=== PATIENT | male | born 1970 | race Caucasian/White ===

== ENCOUNTER 2020-06-15 15:49 | Emergency (ER) | payer OTHER ==
[2020-06-15 16:34] LABS: APPEARANCE,URINE Cloudy (CLEAR); BILIRUBIN,URINE Negative (NEGATIVE); COLOR,URINE Yellow (YELLOW); GLUCOSE, URINE (UA) Negative (NEGATIVE); KETONES,URINE Negative (NEGATIVE); LEUKOCYTE ESTERASE ,URINE Moderate (NEGATIVE); NITRATE,URINE Positive (NEGATIVE); OCCULT BLOOD,URINE Large (NEGATIVE); PROTEIN,URINE POS 2+ mg/dL (NEGATIVE)
[2020-06-15 16:52] LABS: RBC,URINE None Seen /HPF (0-1)
[2020-06-15 16:53] LABS: BACTERIA,URINE Many /HPF (None Seen); SQUAMOUS EPITHELIAL CELL,UR None Seen /HPF (0-2); WBC,URINE 26-50 /HPF (0-1)
[2020-06-15 17:57] LABS: BASOPHILS % (AUTO) 0.3 % (0.0-5.0); EOSINOPHILS % (AUTO) 1.8 % (0.0-8.0); HEMATOCRIT 43.3 % (42-54); LYMPHOCYTES % (AUTO) 15.6 % (21.0-51.0); MEAN CORPUSCULAR HEMOGLOBIN 23.8 pg (27.0-33.0); MEAN CORPUSCULAR HGB CONC 30.7 g/dL (32.0-36.0); MEAN CORPUSCULAR VOLUME 77.3 fL (79-99); MONOCYTES % (AUTO) 4.5 % (3.0-13.0); NEUTROPHILS % (AUTO) 77.4 % (40.0-77.0); PLATELET COUNT (AUTO) 227 K/uL (130-400); RED CELL DISTRIBUTION WIDTH 18.5 % (11.0-15.5); WHITE BLOOD COUNT (AUTO) 8.9 K/uL (4.8-10.8)
[2020-06-15 18:05] LABS: CREATININE 1.1 mg/dL (0.5-1.5); POTASSIUM 4.2 mmol/L (3.5-5.1)
[2020-06-15 18:09] LABS: ALBUMIN 3.2 g/dL (3.5-5.0); BILIRUBIN,TOTAL 0.3 mg/dL (0.2-1.0); TOTAL PROTEIN, SERUM 7.6 g/dL (6.0-8.3)
[2020-06-15] MEDS ORDERED: LIDOCAINE HCL-MPF 1% 2ML VIAL ONE (20:04)
[2020-06-15] MEDS ORDERED: CEFTRIAXONE SODIUM 1 GM ONE (20:04)
== END 2020-06-15 20:14 | disposition home or self-care (01) ==
LOC: EDH 15:49
DX: N39.0 Urinary tract infection, site not specified (principal); Z98.890 Other specified postprocedural states
CPT/HCPCS: 36415; 80053; 81001; 85025; 87077; 87088; 87186; 96372; 99283; J0696; J3490

== ENCOUNTER 2020-12-28 18:30 | Inpatient (IN) | payer OTHER ==
[~2020-12-28] VITALS: Ht 185.4 cm; Wt 275.3 kg
[2020-12-28] MEDS ORDERED: VANCOMYCIN KIT 1 GM/250 ML IV.KIT IV STA (20:44)
[2020-12-28] MEDS ORDERED: ZOSYN 3.375GM +NS 50ML IV STA (20:44)
[2020-12-28 21:23] LABS: BASOPHILS % (AUTO) 0.4 % (0.0-5.0); EOSINOPHILS % (AUTO) 2.2 % (0.0-8.0); HEMATOCRIT 39.9 % (42-54); MEAN CORPUSCULAR HEMOGLOBIN 23.8 pg (27.0-33.0); MEAN CORPUSCULAR HGB CONC 31.3 g/dL (32.0-36.0); MEAN CORPUSCULAR VOLUME 75.9 fL (79-99); MONOCYTES % (AUTO) 10.9 % (3.0-13.0); NEUTROPHILS % (AUTO) 67.3 % (40.0-77.0); PLATELET COUNT (AUTO) 175 K/uL (130-400); RED BLOOD CELL COUNT(AUTO) 5.26 MIL/uL (4.50-6.20); RED CELL DISTRIBUTION WIDTH 16.9 % (11.0-15.5); WHITE BLOOD COUNT (AUTO) 4.6 K/uL (4.8-10.8)
[2020-12-28 21:38] LABS: POTASSIUM 3.8 mmol/L (3.5-5.1)
[2020-12-28 21:43] LABS: ALBUMIN 3.3 g/dL (3.5-5.0); BILIRUBIN,TOTAL 0.4 mg/dL (0.2-1.0); TOTAL PROTEIN, SERUM 7.7 g/dL (6.0-8.3)
[2020-12-28] MEDS ORDERED: ONDANSETRON 4MG INJ IV PRN (23:00)
[2020-12-28] MEDS ORDERED: VANCOMYCIN PROTOCOL PER PHARMACY IV PRN (23:00)
[2020-12-28] MEDS ORDERED: LACTULOSE 20 GM/30 ML UDCUP PO PRN (23:00)
[2020-12-28] MEDS ORDERED: ACETAMINOPHEN 325 MG TAB PO PRN ×2 (23:00)
[2020-12-28] MEDS ORDERED: MAG/ALUM/SIMETH 30 ML UDCUP PO PRN (23:00)
[2020-12-28 23:07] LABS: APPEARANCE,URINE Clear (CLEAR); BILIRUBIN,URINE Negative (NEGATIVE); COLOR,URINE Yellow (YELLOW); GLUCOSE, URINE (UA) Negative (NEGATIVE); KETONES,URINE Negative (NEGATIVE); LEUKOCYTE ESTERASE ,URINE Negative (NEGATIVE); NITRATE,URINE Negative (NEGATIVE); OCCULT BLOOD,URINE Negative (NEGATIVE); PROTEIN,URINE Negative (NEGATIVE)
[2020-12-29] MEDS ORDERED: KETOROLAC 15MG/ML VIAL (15MG/ML) IM PRN (00:30)
[2020-12-29] MEDS ORDERED: MORPHINE 2 MG SYG IVP PRN (00:30)
[2020-12-29] MEDS ORDERED: 0.9%NACL 50ML 50 ML IV ONE (05:41)
[2020-12-29] MEDS: ZOSYN 3.375GM+NS 50ML 50 ML IV SCH ×4 (05:44→20:32)
[2020-12-29 06:19] LABS: HEMATOCRIT 39.5 % (42-54); MEAN CORPUSCULAR HGB CONC 31.6 g/dL (32.0-36.0); RED BLOOD CELL COUNT(AUTO) 5.2 MIL/uL (4.50-6.20); WHITE BLOOD COUNT (AUTO) 5.1 K/uL (4.8-10.8)
[2020-12-29 06:37] LABS: HEMOGLOBIN A1C 5.9 % (4.0-6.0)
[2020-12-29 06:50] LABS: CREATININE 0.9 mg/dL (0.5-1.5); POTASSIUM 3.9 mmol/L (3.5-5.1)
[2020-12-29] MEDS ORDERED: ATOR10 PO (09:27)
[2020-12-29] MEDS ORDERED: LISI5TAB21 PO (09:27)
[2020-12-29] MEDS: FAMOTIDINE 20MG TAB PO SCH ×2 (09:30→21:29)
[2020-12-29] MEDS: ENOXAPARIN SODIUM 40 MG/0.4 ML SYRINGE SQ SCH (09:30)
[2020-12-29 11:00] VITALS: BP 152/74
[2020-12-29] MEDS ORDERED: VANCOMYCIN 2GM/500ML NS IV SCH ×2 (12:00)
[2020-12-29] MEDS ORDERED: COMPOUND IV REFRIGERATED 1 EACH IVSOLN MISC PRN (12:00)
[2020-12-29] MEDS: LISINOPRIL 5 MG TABLET PO SCH (12:02)
[2020-12-29 15:25] VITALS: BP 150/84
[2020-12-29 19:25] VITALS: BP 134/72
[2020-12-29] MEDS: ATORVASTATIN 10 MG TABLET PO SCH (21:29)
[2020-12-29] MEDS: VANCOMYCIN 2GM/500ML NS IV SCH ×2 (21:35)
[2020-12-29 23:14] VITALS: BP 145/67
[2020-12-30] MEDS: ZOSYN 3.375GM+NS 50ML 50 ML IV SCH ×4 (02:00→21:41)
[2020-12-30 03:59] VITALS: BP 126/67
[2020-12-30 04:34] LABS: HEMATOCRIT 41.8 % (42-54); MEAN CORPUSCULAR HEMOGLOBIN 23.4 pg (27.0-33.0); MEAN CORPUSCULAR HGB CONC 30.6 g/dL (32.0-36.0); MEAN CORPUSCULAR VOLUME 76.4 fL (79-99); RED BLOOD CELL COUNT(AUTO) 5.47 MIL/uL (4.50-6.20); RED CELL DISTRIBUTION WIDTH 17.2 % (11.0-15.5); WHITE BLOOD COUNT (AUTO) 4.1 K/uL (4.8-10.8)
[2020-12-30 04:46] LABS: CREATININE 0.9 mg/dL (0.5-1.5); POTASSIUM 4.2 mmol/L (3.5-5.1)
[2020-12-30] MEDS: VANCOMYCIN 2GM/500ML NS IV SCH ×6 (05:44→23:32)
[2020-12-30 07:35] VITALS: BP 120/58
[2020-12-30] MEDS: FAMOTIDINE 20MG TAB PO SCH ×2 (09:35→21:40)
[2020-12-30] MEDS: ENOXAPARIN SODIUM 40 MG/0.4 ML SYRINGE SQ SCH (09:35)
[2020-12-30] MEDS: LISINOPRIL 5 MG TABLET PO SCH (09:36)
[2020-12-30 11:30] VITALS: BP 139/71
[2020-12-30 15:40] VITALS: BP 137/78
[2020-12-30 20:00] VITALS: BP 139/67
[2020-12-30] MEDS: ATORVASTATIN 10 MG TABLET PO SCH (21:40)
[2020-12-31] VITALS: BP 142/71
[2020-12-31 04:00] VITALS: BP 151/84
[2020-12-31] MEDS: ZOSYN 3.375GM+NS 50ML 50 ML IV SCH ×3 (04:32→20:44)
[2020-12-31 04:49] LABS: HEMATOCRIT 41.6 % (42-54); MEAN CORPUSCULAR HEMOGLOBIN 23.3 pg (27.0-33.0); MEAN CORPUSCULAR HGB CONC 29.8 g/dL (32.0-36.0); MEAN CORPUSCULAR VOLUME 78.2 fL (79-99); RED BLOOD CELL COUNT(AUTO) 5.32 MIL/uL (4.50-6.20); RED CELL DISTRIBUTION WIDTH 16.8 % (11.0-15.5); WHITE BLOOD COUNT (AUTO) 4.6 K/uL (4.8-10.8)
[2020-12-31 05:04] LABS: CREATININE 0.9 mg/dL (0.5-1.5); POTASSIUM 4.3 mmol/L (3.5-5.1)
[2020-12-31] MEDS: VANCOMYCIN 2GM/500ML NS IV SCH ×4 (05:39→13:39)
[2020-12-31 07:30] VITALS: BP 131/72
[2020-12-31] MEDS: ENOXAPARIN SODIUM 40 MG/0.4 ML SYRINGE SQ SCH (09:07)
[2020-12-31] MEDS: LISINOPRIL 5 MG TABLET PO SCH (09:07)
[2020-12-31] MEDS: FAMOTIDINE 20MG TAB PO SCH ×2 (09:07→20:44)
[2020-12-31 11:25] VITALS: BP 170/88
[2020-12-31 15:25] VITALS: BP 175/89
[2020-12-31 20:00] VITALS: BP 140/87
[2020-12-31] MEDS: ATORVASTATIN 10 MG TABLET PO SCH (20:44)
[2020-12-31] MEDS: NYSTATIN 15 GM POWDER TP SCH (20:44)
[2020-12-31] MEDS: VANCOMYCIN 1G 1.75 GM in 0.9% NACL 250ML 250 ML IV SCH (22:19)
[2021-01-01 03:52] VITALS: BP 139/64
[2021-01-01] MEDS: ZOSYN 3.375GM+NS 50ML 50 ML IV SCH (04:46)
[2021-01-01 05:31] LABS: HEMATOCRIT 39.2 % (42-54); MEAN CORPUSCULAR HEMOGLOBIN 23.7 pg (27.0-33.0); MEAN CORPUSCULAR HGB CONC 30.6 g/dL (32.0-36.0); MEAN CORPUSCULAR VOLUME 77.3 fL (79-99); RED BLOOD CELL COUNT(AUTO) 5.07 MIL/uL (4.50-6.20); RED CELL DISTRIBUTION WIDTH 16.7 % (11.0-15.5); WHITE BLOOD COUNT (AUTO) 5.2 K/uL (4.8-10.8)
[2021-01-01 05:45] LABS: CREATININE 0.9 mg/dL (0.5-1.5); POTASSIUM 4.3 mmol/L (3.5-5.1)
[2021-01-01] MEDS: VANCOMYCIN 1G 1.75 GM in 0.9% NACL 250ML 250 ML IV SCH (05:47)
[2021-01-01 08:00] VITALS: BP 142/85
[2021-01-01] MEDS: ENOXAPARIN SODIUM 40 MG/0.4 ML SYRINGE SQ SCH (09:05)
[2021-01-01] MEDS: FAMOTIDINE 20MG TAB PO SCH (09:05)
[2021-01-01] MEDS: LISINOPRIL 5 MG TABLET PO SCH (09:05)
[2021-01-01 11:54] VITALS: BP 145/75
[2021-01-01] MEDS: NYSTATIN 15 GM POWDER TP SCH (12:51)
[2021-01-01] MEDS ORDERED: CEPH500B PO (14:18)
== END 2021-01-01 16:00 | disposition home or self-care (01) | DRG 603 ==
LOC: EDH 18:30 → EDHIP 23:06 → 3DH 12-29 10:43
PROVIDERS: ADMIT Hospitalist; ATTEND Hospitalist
DX: L03.116 Cellulitis of left lower limb (principal); Z68.45 Body mass index [BMI] 70 or greater, adult; J44.9 Chronic obstructive pulmonary disease, unspecified; G47.33 Obstructive sleep apnea (adult) (pediatric); I10 Essential (primary) hypertension; E66.01 Morbid (severe) obesity due to excess calories; R53.81 Other malaise; E78.00 Pure hypercholesterolemia, unspecified; E11.9 Type 2 diabetes mellitus without complications; Z20.822 Contact with and (suspected) exposure to COVID-19; Z87.891 Personal history of nicotine dependence; Z83.3 Family history of diabetes mellitus; Z80.9 Family history of malignant neoplasm, unspecified
CPT/HCPCS: 36415; 80048; 80053; 80202; 81003; 82948; 83036; 83605; 85025; 85027; 87040; 87088; 87635; 87804; 93971; C9803; G0378; J1650; J1885; J2543; J3370; J7040; J7050

== ENCOUNTER 2023-05-08 09:09 | Emergency (ER) | payer MEDICARE, OTHER ==
[~2023-05-08] VITALS: Ht 182.9 cm; Wt 235.9 kg
[~2023-05-08 09:09] MED LIST: ATOR10 PO; CEPH500B PO; LISI5TAB21 PO
[2023-05-08 10:17] LABS: BASOPHILS # (AUTO) 0.02 K/uL (0.00-0.20); BASOPHILS % (AUTO) 0.2 % (0.0-5.0); EOSINOPHILS # (AUTO) 0.02 K/uL (0.00-0.70); EOSINOPHILS % (AUTO) 0.2 % (0.0-8.0); HEMATOCRIT 45.1 % (42-54); IMMATURE GRANULOCYTE ABSOLUTE 0.04 K/uL (0-1); LYMPHOCYTES # (AUTO) 0.5 K/uL (1.0-4.8); LYMPHOCYTES % (AUTO) 4.7 % (21.0-51.0); MEAN CORPUSCULAR HEMOGLOBIN 25.1 pg (27.0-33.0); MEAN CORPUSCULAR HGB CONC 31.7 g/dL (32.0-36.0); MEAN CORPUSCULAR VOLUME 79.1 fL (79-99); MONOCYTES # (AUTO) 0.5 K/uL (0.1-1.0); MONOCYTES % (AUTO) 5.3 % (3.0-13.0); NEUTROPHILS # (AUTO) 8.7 K/uL (1.8-7.7); NEUTROPHILS % (AUTO) 89.2 % (40.0-77.0); PLATELET COUNT (AUTO) 186 K/uL (130-400); RED CELL DISTRIBUTION WIDTH 15.7 % (11.0-15.5); WHITE BLOOD COUNT (AUTO) 9.8 K/uL (4.8-10.8)
[2023-05-08 10:26] LABS: CREATININE 0.8 mg/dL (0.5-1.3); POTASSIUM 3.9 mmol/L (3.5-5.1)
[2023-05-08 10:31] LABS: ALBUMIN 3.6 g/dL (3.5-5.0); BILIRUBIN,TOTAL 0.5 mg/dL (0.2-1.0); TOTAL PROTEIN, SERUM 7.6 g/dL (6.0-8.3)
[2023-05-08] MEDS: ONDANSETRON 4MG INJ IVP ONE (11:51)
[2023-05-08] MEDS: CLINDAMYCIN IVPB 600MG/50ML 50 ML IV ONE (11:51)
[2023-05-08] MEDS: MORPHINE 4 MG SYG IVP ONE (11:51)
[2023-05-08] MEDS ORDERED: CLIN-141 PO (12:27)
[2023-05-08] MEDS ORDERED: KETO10 PO (12:27)
[2023-05-08] MEDS: KETOROLAC 30MG VIAL (30MG/ML) IM ONE (13:00)
[2023-05-08 13:13] VITALS: BP 122/68; PULSE 78; RESP 18; O2SAT 98
== END 2023-05-08 13:19 | disposition home or self-care (01) ==
LOC: EDH 09:09
DX: A46 Erysipelas (principal); E66.01 Morbid (severe) obesity due to excess calories; Z68.45 Body mass index [BMI] 70 or greater, adult
CPT/HCPCS: 99285; 96365; 93971; 96375; 80053; 85025; 87040 ×2; 83605; 36415; 96372; J2405; J2270; J1885; J3490

== ENCOUNTER 2023-12-22 16:02 | Emergency (ER) | payer MEDICARE ==
[~2023-12-22] VITALS: Ht 182.9 cm; Wt 182.3 kg
[~2023-12-22 16:02] MED LIST changes: +CLIN-141 PO; +KETO10 PO
--- NOTE | 2023-12-22 16:09 | ERN ---
ED Note History of Present Illness Stated Complaint: SWELLING OF RIGHT LEG Chief Complaint: Cellulitis Time Seen by MD: 16:04 Dictation: PATIENT IS A 53-YEAR-OLD MALE COMING IN WITH BURNING SENSATION AND FEELING LIKE I AM GOING TO HAVE CELLULITIS TO MY RIGHT CALF ONSET 2-3 HOURS PRIOR TO ARRIVAL. HE STATES IT HAS BEEN RED SINCE THIS MORNING AND FEELS LIKE IT IS BURNING DENIES FEVER CHILLS NAUSEA VOMITING. NO CALF PAIN NO SWELLING. DISTAL NEUROVASCULAR CMS INTACT. Allergies: Coded Allergies: No Known Drug Allergies (Unverified Allergy, Unknown, 12/28/20) Home Meds Active Scripts Ketorolac Tromethamine (Toradol) 10 Mg Tab, 10 MG PO Q6HPRN for PAIN, #15 TAB Prov:JOANNE SUAREZ JOB TRAINING SPECIALIST 05/08/23 Clindamycin HCl (Clindamycin HCl) 300 Mg Capsule, 300 MG PO ACLUNCH for 7 Days, #28 CAP Prov:JOANNE SUAREZ JOB TRAINING SPECIALIST 05/08/23 Cephalexin Monohydrate (Keflex) 500 Mg Cap, 500 MG PO Q8H, #21 CAP 0 Refills Prov:PAUL QUIÑONES AGPCNP 01/01/21 Reported Medications Lisinopril (Lisinopril) 5 Mg Tablet, 5 MG PO DAILY, TAB 12/29/20 Atorvastatin Calcium (LIPITOR) 10 Mg Tab, 10 MG PO HS, TAB 12/29/20 Past Medical History Past Medical History: No Pertinent History Additional Past Medical Hx: OBESE, SLEEP APNEA Surgical History: Other Surgical History Other: GASTRIC BYPASS PSYCH History: no pertinent psych hx RN Note Reviewed/Agreed w/PFSH: Yes Review of System Dictation CONSTITUTIONAL: NEGATIVE EXCEPT FOR HPI HEAD/FACE: NEGATIVE EXCEPT FOR HPI EENT: NEGATIVE EXCEPT FOR HPI RESPIRATORY: NEGATIVE EXCEPT FOR HPI GASTROINTESTINAL/ABDOMINAL: NEGATIVE EXCEPT FOR HPI GENITOURINARY: NEGATIVE EXCEPT FOR HPI MUSCULOSKELETAL: NEGATIVE EXCEPT FOR HPI INTEGUMENTARY: NEGATIVE EXCEPT FOR HPI ERYTHEMA OR TENDERNESS TO POSTERIOR RIGHT CALF NEUROLOGICAL/PSYCH: NEGATIVE EXCEPT FOR HPI HEMATOLOGIC/LYMPHATIC: NEGATIVE EXCEPT FOR HPI ALL SYSTEMS NEGATIVE, EXCEPT NOTED ABOVE. 13 POINT REVIEW OF SYSTEMS ASSESSED AND ALL NEGATIVE EXCEPT FOR ABOVE. Initial Vital Sign VS Vital Signs Date Time Temp Pulse Resp B/P (MAP) Pulse Ox O2 Delivery O2 Flow Rate FiO2 12/22/23 16:04 98.6 91 20 151/87 98 Room Air 0 12/22/23 16:04 21 Physical Exam Dictation VITAL SIGNS REVIEWED GENERAL APPEARANCE: ALERT, ORIENTED X 3, NO ACUTE DISTRESS, WELL DEVELOPED, NOURISHED. MORBID OBESITY HEAD AND FACE: NON-TRAUMATIC. EYES: PERRL, PINK CONJUNCTIVAS, EYELID NO TRAUMA, ANTERIOR CHAMBER WITH ARCUS SENILIS. EARS: PINNAS INTACT AND NO SIGNS OF TRAUMA OR ERYTHEMA EAR CANALS CLEAR AND NO DISCHARGE TM NO ERYTHEMA NOSE: NO DISCHARGE, NO BLEEDING. OROPHARYNX: MOUTH NORMAL, TONGUE PINK, PHARYNX CLEAR,NO ERYTHEMA, TONSILS NO EXUDATES, NO ABSCESSES NOTED, MUCOUS MEMBRANE MOIST NECK: SUPPLE, NON-TENDER, NO THYROMEGALY, NO MASSES, NO JVD, NO BRUITS BREAST:DEFERRED CHEST:NO TENDERNESS, NO CREPITUS, NO PARADOXICAL MOVEMENT, NO RETRACTIONS LUNGS:CLEAR, WELL-VENTILATED, SYMMETRIC, NO RALES, NO WHEEZING, NO RHONCHI, NO STRIDOR, GOOD BREATH SOUNDS BILATERALLY HEART: REGULAR RATE, REGULAR RHYTHM, NO MURMUR, NO GALLOPS VASCULAR: NO PERIPHERAL EDEMA, ABDOMEN: SOFT, POSITIVE BOWEL SOUNDS, NONDISTENDED, NO GUARDING, NONTENDER, NO REBOUND, NO MASSES NO HEPATOMEGALY, NO SPLENOMEGALY, NO ABDUL'S SIGN, NO HERNIAS. RECTAL: DEFERRED GENITAL: DEFERRED NEUROLOGICAL: NORMAL SPEECH, MOTOR FUNCTION INTACT, SENSORY FUNCTION INTACT MUSCULOSKELETAL: NECK NONTENDER, FULL RANGE OF MOTION, BACK NONTENDER, FULL RANGE OF MOTION, EXTREMITIES: POSTERIOR RIGHT CALF WITH ERYTHEMA WITHOUT SWELLING TENDERNESS. DISTAL NEUROVASCULAR CMS INTACT. SKIN IS INTACT. SKIN: COLOR PINK, DRY, NO TURGOR, NO RASH, NO LACERATIONS, NO ABRASIONS, NO CONTUSIONS. LYMPHATIC: DEFERRED Results (Laboratory/Radiology) Laboratory/Radiology Laboratory Tests Test 12/22/23 16:42 White Blood Count 9.7 K/uL (4.8-10.8) Red Blood Count 5.39 MIL/uL (4.50-6.20) Hemoglobin 14.4 g/dL (14.0-18.0) Hematocrit 43.5 % (42-54) Mean Corpuscular Volume 80.7 fL (79-99) Mean Corpuscular Hemoglobin 26.7 pg (27.0-33.0) L Mean Corpuscular Hemoglobin Concent 33.1 g/dL (32.0-36.0) Red Cell Distribution Width 15.3 % (11.0-15.5) Platelet Count 187 K/uL (130-400) Mean Platelet Volume 9.4 fL (7.5-10.5) Immature Granulocyte % (Auto) 0.4 % (0-1) Neutrophils (%) (Auto) 88.9 % (40.0-77.0) H Lymphocytes (%) (Auto) 5.6 % (21.0-51.0) L Monocytes (%) (Auto) 4.1 % (3.0-13.0) Eosinophils (%) (Auto) 0.9 % (0.0-8.0) Basophils (%) (Auto) 0.1 % (0.0-5.0) Neutrophils # (Auto) 8.6 K/uL (1.8-7.7) H Lymphocytes # (Auto) 0.5 K/uL (1.0-4.8) L Monocytes # (Auto) 0.4 K/uL (0.1-1.0) Eosinophils # (Auto) 0.09 K/uL (0.00-0.70) Basophils # (Auto) 0.01 K/uL (0.00-0.20) Absolute Immature Granulocyte (auto 0.04 K/uL (0-1) Nucleated Red Blood Cells 0.0 % (0.0-0.19) White Cell Morphology Comment See comments Sodium Level 134 mmol/L (136-145) L Potassium Level 3.7 mmol/L (3.5-5.1) Chloride Level 98 mmol/L (101-111) L Carbon Dioxide Level 28 mmol/L (21-32) Blood Urea Nitrogen 15 mg/dL (7-18) Creatinine 0.8 mg/dL (0.5-1.3) Glomerular Filtration Rate Calc 106 mL/min (>90) Random Glucose 97 mg/dL (70-105) Lactic Acid Level 1.9 mmol/L (0.8-2.5) Total Calcium 8.7 mg/dL (8.5-10.1) Labs Reviewed?: Yes ED Course ED Course Orders Procedure Category Date Status Time Blood Cult KAVON 12/22/23 In Process 16:05 Lactic Acid LAB 12/22/23 Complete 16:05 Cbc With Differential LAB 12/22/23 Complete 16:05 Basic Metabolic Panel LAB 12/22/23 Complete 16:05 Clindamycin Ivpb PHA 12/22/23 Complete 600mg/50ml (Cleocin 17:30 Hydrocodone/Apap PHA 12/22/23 Complete 5/325 (Stacy 5/325mg) 18:00 Clindamycin Ivpb PHA 12/22/23 Complete 600mg/50ml (Cleocin 17:32 Current Medications Medications (Trade) Dose Ordered Sig/Cheryl Route PRN Reason Start Time Stop Time Status Last Admin Dose Admin Acetaminophen/ Hydrocodone Bitart (NORco 5/325MG) 1 tab ONCE ONCE PO 12/22/23 18:00 12/22/23 18:01 DC 12/22/23 17:42 Clindamycin HCl/ Dextrose 50 ml @ 100 mls/hr ONCE STAT IV 12/22/23 17:32 12/22/23 18:01 DC Clindamycin HCl/ Dextrose 50 ml @ 100 mls/hr Q8H IV 12/22/23 17:30 12/22/23 17:34 DC 12/22/23 17:06 Vital Signs Date Time Temp Pulse Resp B/P (MAP) Pulse Ox O2 Delivery O2 Flow Rate FiO2 12/22/23 16:04 98.6 91 20 151/87 98 Room Air* 0 21 12/22/23 16:04 98.6 91 20 151/87 98 Room Air 0 Medical Decision Making MDM MDM: DIFFERENTIAL DIAGNOSIS: SEPSIS/CELLULITIS/ERYSIPELAS/LEG PAIN RATIONALE: TESTS CONSIDERED AND ORDERED SECONDARY TO SHARED DECISION MAKING INCLUDE: LABS PREVIOUS OUTSIDE RECORDS REVIEWED: OLD ER VISITS. REVIEWED RISK OF COMPLICATION AND/OR MORBIDITY OR MORTALITY OF PATIENT MANAGEMENT: NONE MEDICATIONS-PER MEDICATION RECONCILIATION SEE NURSE'S NOTES NEED FOR HOSPITALIZATION: PATIENT DOES NOT MEET CRITERIA FOR HOSPITALIZATION. NEED FOR EMERGENCY MAJOR/MINOR SURGERY: NO THERE ARE NO SOCIAL CONCERNS WITH THIS PATIENT. PRESCRIPTION DRUG MANAGEMENT CLINDAMYCIN/TYLENOL THREE PRESCRIPTIONS WILL INCLUDE SYMPTOMATIC CARE PATIENT'S PRIOR EXTERNAL MEDICAL RECORDS FROM OTHER ER VISITS WERE REVIEWED BY ME INDICATED. PRIOR TESTING AND RESULTS FROM PREVIOUS VISITS WERE REVIEWED. PRIOR TESTS WERE TAKEN INTO ACCOUNT WITH MEDICAL DECISION MAKING AND RESOURCE UTILIZATION, INDEPENDENT HISTORIAN/HISTORIANS WERE USED TO OBTAIN COMPLETE MEDICAL HISTORY. I INDEPENDENTLY INTERPRETED THE TEST THAT WERE PERFORMED, RESULTS WERE REVIEWED BY ME AND CONSIDERED FINDINGS ON RADIOLOGY IF ORDERED. MEDICAL MANAGEMENT AND EXAMINATION INTERPRETATION DISCUSSIONS WERE HAD BY ME WITH OTHER QUALIFIED HEALTHCARE PROFESSIONALS INDICATED FOR THE PATIENT'S CARE. DX & DISP Disposition: Discharge Departure Impression: Primary Impression: Erysipelas of right lower extremity Condition: Stable Scripts Acetaminophen with Codeine (Acetaminophen-Cod #3 Tablet) 300 Mg-30 Mg Tablet 1 TAB PO Q4H PRN for MODERATE TO SEVERE, #12 TAB 0 Refills Prov: JOANNE SUAREZ NP 12/22/23 Clindamycin HCl (Clindamycin HCl) 300 Mg Capsule 1 CAP PO QID for 10 Days, #40 CAP 0 Refills Prov: JOANNE SUAREZ NP 12/22/23 Additional Instructions: Follow-up with primary care provider in 1 to 2 days. Take medications as directed here in the emergency room. Okay to continue home medications unless otherwise discussed during your visit in the emergency room today. Return to your nearest emergency room if symptoms worsen or if there is no improvement. Call 911 if you need immediate assistance. Take Tylenol or Motrin [id number] as needed and if no contraindications are present. Increase oral hydration. A wound culture or urine culture was ordered here in the emergency room department please follow-up with primary care provider and advise them to get repeat ports from our facility. If you had any Mak wrap/splints that were applied here, please do not remove them until you see your primary care or specialty. Take clindamycin as directed until gone. Keep your right leg elevated as much as possible. Follow up with your primary care doctor on Sunday Referrals: CELIO VICTOR (PCP) Time of Disposition: 18:30 I have reviewed the case, and I agree with, Diagnosis and Plan JOANNE SUAREZ NP Dec 22, 2023 16:09
[2023-12-22 16:50] LABS: BASOPHILS # (AUTO) 0.01 K/uL (0.00-0.20); BASOPHILS % (AUTO) 0.1 % (0.0-5.0); EOSINOPHILS # (AUTO) 0.09 K/uL (0.00-0.70); EOSINOPHILS % (AUTO) 0.9 % (0.0-8.0); HEMATOCRIT 43.5 % (42-54); IMMATURE GRANULOCYTE ABSOLUTE 0.04 K/uL (0-1); LYMPHOCYTES # (AUTO) 0.5 K/uL (1.0-4.8); LYMPHOCYTES % (AUTO) 5.6 % (21.0-51.0); MEAN CORPUSCULAR HEMOGLOBIN 26.7 pg (27.0-33.0); MEAN CORPUSCULAR HGB CONC 33.1 g/dL (32.0-36.0); MEAN CORPUSCULAR VOLUME 80.7 fL (79-99); MONOCYTES # (AUTO) 0.4 K/uL (0.1-1.0); MONOCYTES % (AUTO) 4.1 % (3.0-13.0); NEUTROPHILS # (AUTO) 8.6 K/uL (1.8-7.7); NEUTROPHILS % (AUTO) 88.9 % (40.0-77.0); PLATELET COUNT (AUTO) 187 K/uL (130-400); RED BLOOD CELL COUNT(AUTO) 5.39 MIL/uL (4.50-6.20); RED CELL DISTRIBUTION WIDTH 15.3 % (11.0-15.5); WHITE BLOOD COUNT (AUTO) 9.7 K/uL (4.8-10.8)
[2023-12-22 17:03] LABS: CREATININE 0.8 mg/dL (0.5-1.3); POTASSIUM 3.7 mmol/L (3.5-5.1)
[2023-12-22] MEDS: CLINDAMYCIN IVPB 600MG/50ML 50 ML IV SCH (17:06)
[2023-12-22] MEDS: CLINDAMYCIN IVPB 600MG/50ML 50 ML IV STA (17:40)
[2023-12-22] MEDS: HYDROcodone/APAP 5/325 1 TAB TABLET PO ONE (17:42)
[2023-12-22] MEDS ORDERED: ACET-2079 PO (18:31)
[2023-12-22] MEDS ORDERED: CLIN-141 PO (18:31)
[2023-12-22] MEDS: ketOROlac 30MG VIAL (30MG/ML) IVP ONE (19:05)
[2023-12-22 19:07] VITALS: BP 124/88; PULSE 68; RESP 20; TEMP 98.6; O2SAT 100
== END 2023-12-22 19:09 | disposition home or self-care (01) ==
LOC: EDH 16:02
DX: A46 Erysipelas (principal); G47.30 Sleep apnea, unspecified; Z79.899 Other long term (current) drug therapy; Z98.84 Bariatric surgery status; Z98.890 Other specified postprocedural states
CPT/HCPCS: 99284; 96365; 96375; 80048; 85025; 87040 ×2; 83605; 36415; J1885; J3490

== ENCOUNTER 2023-12-28 09:08 | Emergency (ER) | payer MEDICARE ==
[~2023-12-28] VITALS: Ht 182.9 cm; Wt 186.2 kg
[~2023-12-28 09:08] MED LIST changes: +ACET-2079 PO
--- NOTE | 2023-12-28 09:40 | ERN ---
General Chief Complaint: Lower Extremity Pain/Injury Stated Complaint: RLE SWELLING Time Seen by MD: 09:11 Source: patient History of Present Illness Initial Comments PATIENT IS A 53-YEAR-OLD MALE COMING IN TO BE EVALUATED FOR RIGHT LOWER EXTREMITY SWELLING AND TENDERNESS. PATIENT STATES THAT HE HAS BEEN TREATED FOR CELLULITIS IN HIS CURRENTLY TAKING ANTIBIOTICS. HE WAS EVALUATED BY HIS PCP AND WAS TOLD NEEDED AN [facility]LCERS HOME TO RULE OUT A CLOT. PATIENT HAS BEEN TRAVELING AND ALSO HAD A RECENT BARIATRIC SURGERY. Allergies: Coded Allergies: No Known Drug Allergies (Unverified Allergy, Unknown, 12/28/20) Home Meds Active Scripts Acetaminophen with Codeine (Acetaminophen-Cod #3 Tablet) 300 Mg-30 Mg Tablet, 1 TAB PO Q4H PRN for MODERATE TO SEVERE, #12 TAB 0 Refills Prov:JOANNE SUAREZ NP 12/22/23 Clindamycin HCl (Clindamycin HCl) 300 Mg Capsule, 1 CAP PO QID for 10 Days, #40 CAP 0 Refills Prov:JOANNE SUAREZ NP 12/22/23 Ketorolac Tromethamine (Toradol) 10 Mg Tab, 10 MG PO Q6HPRN for PAIN, #15 TAB Prov:JOANNE SUAREZ NP 05/08/23 Clindamycin HCl (Clindamycin HCl) 300 Mg Capsule, 300 MG PO ACLUNCH for 7 Days, #28 CAP Prov:JOANNE SUAREZ NP 05/08/23 Cephalexin Monohydrate (Keflex) 500 Mg Cap, 500 MG PO Q8H, #21 CAP 0 Refills Prov:PAUL QUIÑONES AGPCNP 01/01/21 Reported Medications Lisinopril (Lisinopril) 5 Mg Tablet, 5 MG PO DAILY, TAB 12/29/20 Atorvastatin Calcium (LIPITOR) 10 Mg Tab, 10 MG PO HS, TAB 12/29/20 Past Medical History Past Medical History: No Pertinent History, High Cholesterol, Hypotension Medical History Other: OBESE, SLEEP APNEA, GOUT Past Surgical History: Other, Bariatric Surgery Surgical History Other: GASTRIC BYPASS ROS Dictation CONSTITUTIONAL: NO CHILLS, NO FEVER, NO WEAKNESS, NO DIAPHORESIS, NO MALAISE. HEAD/FACE: NO SIGNS OF TRAUMA. EENT: NO EYE PAIN, NO BLURRED VISION, NO TEARING, NO DOUBLE VISION, NO EAR PAIN, NO EAR DISCHARGE, NO NOSE PAIN, NO NASAL CONGESTION, NO THROAT PAIN, NO THROAT SWELLING, NO MOUTH PAIN. RESPIRATORY: NO COUGH, NO ORTHOPNEA, NO SOB, NO STRIDOR, NO WHEEZING. CARDIOVASCULAR: NO CHEST PAIN, NO EDEMA, NO PALPITATIONS, NO SYNCOPE. GASTROINTESTINAL/ABDOMINAL: NO ABDOMINAL PAIN, NO CONSTIPATION, NO DIARRHEA, NO NAUSEA, NO VOMITING. GENITOURINARY: NO ABNORMAL DISCHARGE, NO DYSURIA, NO FREQUENT URINATION, NO HEMATURIA. NO COMPLAINTS OF PAIN IN THE GENITALS. MUSCULOSKELETAL: NO BACK PAIN, NO GOUT, NO JOINT PAIN, NO JOINT SWELLING, NO MUSCLE PAIN, NO MUSCLE STIFFNESS, NO NECK PAIN. INTEGUMENTARY: NO CHANGE IN COLOR, NO CHANGE IN HAIR/NAILS, NO DRYNESS, NO LESION, NO LUMPS, NO RASH. NEUROLOGICAL/PSYCH: NO ANXIETY, NOT DEPRESSED, NO EMOTIONAL PROBLEM, NO HEADACHE, NO NUMBNESS, NO PRE-EXISTING DEFICIT, NO HISTORY OF SEIZURES, NO TREMORS, NO WEAKNESS. HEMATOLOGIC/LYMPHATIC: NOT ANEMIC, NO HISTORY OF BLOOD CLOTS, NO APPARENT BLEEDING, NO BRUISING, GLANDS NOT SWOLLEN. ALL SYSTEMS NEGATIVE, EXCEPT NOTED. Physical Exam Physical Exam Dictation VITAL SIGNS: REVIEWED. GENERAL APPEARANCE: ALERT, ORIENTED X3, NO ACUTE DISTRESS, OBESE. HEAD AND FACE: NON-TRAUMATIC. EYES: PERRL, PINK CONJUNCTIVAS, EYELID NO TRAUMA, ANTERIOR CHAMBER CLEAR. EARS: PINNAS INTACT AND NO SIGNS OF TRAUMA OR ERYTHEMA. EAR CANALS CLEAR AND NO DISCHARGE. TMS NO ERYTHEMA. NOSE: NO DISCHARGE, NO BLEEDING. OROPHARYNX: MOUTH NORMAL, TEETH NO CARIES, TONGUE PINK. PHARYNX CLEAR, NO ERYTHEMA. TONSILS NO EXUDATES, NO ABSCESSES NOTED. MUCOUS MEMBRANE MOIST. NECK: SUPPLE, NON-TENDER, NO THYROMEGALY, NO MASSES, NO JVD, NO BRUITS. BREAST: DEFERRED. CHEST: NO TENDERNESS, NO CREPITUS, NO PARADOXICAL MOVEMENT, NO RETRACTIONS. LUNGS: CLEAR, WELL-VENTILATED, SYMMETRIC, NO RALES, NO WHEEZING, NO RHONCHI, NO STRIDOR, GOOD BREATH SOUNDS BILATERALLY. HEART: REGULAR RATE, REGULAR RHYTHM, NO MURMUR, NO GALLOPS. VASCULAR: NO PERIPHERAL EDEMA. ABDOMEN: SOFT, POSITIVE BOWEL SOUNDS, NONDISTENDED, NO GUARDING, NONTENDER, NO REBOUND, NO MASSES NO HEPATOMEGALY, NO SPLENOMEGALY, NO ABDUL'S SIGN, NO HERNIAS. RECTAL: DEFERRED. GENITAL: DEFERRED. NEUROLOGICAL: NORMAL SPEECH, GROSS MOTOR FUNCTION INTACT, GROSS SENSORY FUNCTION INTACT. MUSCULOSKELETAL: NECK NONTENDER, FULL RANGE OF MOTION, BACK NONTENDER, FULL RANGE OF MOTION. EXTREMITIES: NONTENDER, FULL RANGE OF MOTION. RIGHT LOWER EXTREMITY ERYTHEMA AND TENDERNESS SKIN: COLOR PINK, DRY, NO TURGOR, NO RASH, NO LACERATIONS, NO ABRASIONS, NO CONTUSIONS. LYMPHATICS: DEFERRED. Results Laboratory and Microbiology Labs Reviewed?: Yes EKG/XRAY/US/CT/MRI Ultrasound Comment ULTRASOUND RIGHT LOWER EXTREMITY-NO DVT NOTED MDM MDM: DIFFERENTIAL DIAGNOSIS: WELLNESS EXAM, PEDAL EDEMA, VENOUS STASIS PATIENT IS A 53-YEAR-OLD MALE COMING IN TO BE EVALUATED FOR RIGHT LOWER EXTREMITY PAIN. PATIENT STATES HE HAS BEEN TREATED FOR CELLULITIS BUT HIS PCP SENT HIM IN TO EVALUATED FOR A DVT. ULTRASOUND NEGATIVE FOR ACUTE FINDINGS. PATIENT WILL BE DISCHARGED IN STABLE CONDITION. I ADVISED HIM TO FINISH MEDICATION FOR CELLULITIS WHICH HE STATES HE STILL HAS A COUPLE OF MORE DAYS TO GO. ALSO ADVISED HIM FOLLOW UP WITH PCP SOON POSSIBLE. ED Course Orders Procedure Category Date Status Time Us Venous Doppler US 12/28/23 Taken Unilateral 09:17 Vital Signs Date Time Temp Pulse Resp B/P (MAP) Pulse Ox O2 Delivery O2 Flow Rate FiO2 12/28/23 09:10 98.2 57 16 141/64 100 Room Air 0 DX & DISP Disposition: Discharge Departure Impression: Primary Impression: Venous stasis dermatitis Condition: Stable Additional Instructions: FOLLOW-UP WITH PRIMARY CARE PROVIDER IN 1 TO 2 DAYS. TAKE MEDICATIONS DIRECTED HERE IN THE EMERGENCY ROOM. OKAY TO CONTINUE HOME MEDICATIONS UNLESS OTHERWISE DISCUSSED DURING YOUR VISIT IN THE EMERGENCY ROOM TODAY. RETURN TO YOUR NEAREST EMERGENCY ROOM IF SYMPTOMS WORSEN OR IF THERE IS NO IMPROVEMENT. CALL 911 IF YOU NEED IMMEDIATE ASSISTANCE. TAKE TYLENOL [id number] NEEDED AND IF NO CONTRAINDICATIONS ARE PRESENT. INCREASE ORAL HYDRATION. A WOUND CULTURE OR URINE CULTURE WAS ORDERED HERE IN THE EMERGENCY ROOM DEPARTMENT PLEASE FOLLOW-UP WITH PRIMARY CARE PROVIDER AND ADVISE THEM TO GET REPEAT PORTS FROM OUR FACILITY. IF YOU HAD ANY JACKELYN WRAP/SPLINTS THAT WERE APPLIED HERE, PLEASE DO NOT REMOVE THEM UNTIL YOU SEE YOUR PRIMARY CARE OR SPECIALTY. REFERRALS: Referrals: CELIO VICTOR (PCP) Time of Disposition: 09:54 GARETT YU MD Dec 28, 2023 09:40
--- NOTE | 2023-12-28 09:53 | HMCIMG ---
US VENOUS DOPPLER UNILATERAL REASON: llower leg swelling COMPARISON: None Technique: Right venous doppler ultrasound was performed with spectral analysis and color flow imaging technique. FINDINGS: There is a normal appearance of the common femoral, deep femoral, the profunda femoris and popliteal veins. Proximal calf veins appear normal as well. There is normal response to compression and augmentation. There is no evidence of deep venous thrombosis. IMPRESSION: Normal right lower extremity venous Doppler ultrasound.
[2023-12-28 10:12] VITALS: BP 145/88; PULSE 78; RESP 18; TEMP 98.2; O2SAT 98
== END 2023-12-28 10:16 | disposition home or self-care (01) ==
LOC: EDH 09:08
DX: I87.2 Venous insufficiency (chronic) (peripheral) (principal); E78.00 Pure hypercholesterolemia, unspecified; G47.30 Sleep apnea, unspecified; M10.9 Gout, unspecified; Z79.899 Other long term (current) drug therapy; Z98.84 Bariatric surgery status
CPT/HCPCS: 93971; 99284; 99285

== ENCOUNTER 2024-03-19 11:29 | Emergency (ER) | payer MEDICARE ==
[~2024-03-19] VITALS: Ht 182.9 cm; Wt 172.4 kg
--- NOTE | 2024-03-19 12:18 | HMCIMG ---
Exam Type: US VENOUS DOPPLER UNILATERAL Clinical Information: lower leg swelling, r/o DVT Comparison: None Findings: The examination shows normal deep venous system. There is normal compressibility at all levels. There is no intraluminal clot. There is no occlusion. Adequate response is obtained on augmentation. Impression: No evidence of DVT.
--- NOTE | 2024-03-19 12:23 | ERN ---
General Chief Complaint: Lower Extremity Pain/Injury Stated Complaint: LEG NUMBNESS Time Seen by MD: 11:30 History of Present Illness Initial Comments 53-year-old male, obese, presents for right lower leg pain swelling and redness beginning last night. Patient reports history of cellulitis in the same leg. He reports this morning he felt some discomfort. It started turning red few hours there is some redness and tenderness with the erythema to the neurovascularly intact distally. He denies any systemic illness. Allergies: Coded Allergies: No Known Drug Allergies (Unverified Allergy, Unknown, 12/28/20) Home Meds Active Scripts Acetaminophen with Codeine (Acetaminophen-Cod #3 Tablet) 300 Mg-30 Mg Tablet, 1 TAB PO Q4H PRN for MODERATE TO SEVERE, #12 TAB 0 Refills Prov:JOANNE SUAREZ NP 12/22/23 Clindamycin HCl (Clindamycin HCl) 300 Mg Capsule, 1 CAP PO QID for 10 Days, #40 CAP 0 Refills Prov:JOANNE SUAREZ NP 12/22/23 Ketorolac Tromethamine (Toradol) 10 Mg Tab, 10 MG PO Q6HPRN for PAIN, #15 TAB Prov:JOANNE SUAREZ NP 05/08/23 Clindamycin HCl (Clindamycin HCl) 300 Mg Capsule, 300 MG PO ACLUNCH for 7 Days, #28 CAP Prov:JOANNE SUAREZ NP 05/08/23 Cephalexin Monohydrate (Keflex) 500 Mg Cap, 500 MG PO Q8H, #21 CAP 0 Refills Prov:PAUL QUIÑONES AGPCNP 01/01/21 Reported Medications Lisinopril (Lisinopril) 5 Mg Tablet, 5 MG PO DAILY, TAB 12/29/20 Atorvastatin Calcium (LIPITOR) 10 Mg Tab, 10 MG PO HS, TAB 12/29/20 Past Medical History Past Medical History: No Pertinent History, High Cholesterol, Hypotension Medical History Other: OBESE, SLEEP APNEA, GOUT Past Surgical History: Other, Bariatric Surgery Surgical History Other: GASTRIC BYPASS ROS Dictation CONSTITUTIONAL: No chills, no fever, no weakness, no diaphoresis, no malaise. HEAD/FACE: No signs of trauma. EENT: No eye pain, no blurred vision, no tearing, no double vision, no ear pain, no ear discharge, no nose pain, no nasal congestion, no throat pain, no throat swelling, no mouth pain. RESPIRATORY: No cough, no orthopnea, no SOB, no stridor, no wheezing. CARDIOVASCULAR: No chest pain, no edema, no palpitations, no syncope. GASTROINTESTINAL/ABDOMINAL: No abdominal pain, no constipation, no diarrhea, no nausea, no vomiting. GENITOURINARY: No abnormal discharge, no dysuria, no frequent urination, no hematuria. No complaints of pain in the genitals. MUSCULOSKELETAL: Right lower leg pain and swelling tenderness INTEGUMENTARY: No change in color, no change in hair/nails, no dryness, no lesion, no lumps, no rash. NEUROLOGICAL/PSYCH: No anxiety, not depressed, no emotional problem, no headache, no numbness, no pre-existing deficit, no history of seizures, no tremors, no weakness. HEMATOLOGIC/LYMPHATIC: Not anemic, no history of blood clots, no apparent bleeding, no bruising, glands not swollen. All Systems Negative, Except as Noted. Physical Exam Physical Exam Dictation VITAL SIGNS: Reviewed. GENERAL APPEARANCE: Alert, oriented x3, no acute distress, obese. HEAD AND FACE: Non-traumatic. EYES: PERRL, pink conjunctivas, eyelid no trauma, anterior chamber clear. EARS: Pinnas intact and no signs of trauma or erythema. Ear canals clear and no discharge. TMs no erythema. NOSE: No discharge, no bleeding. OROPHARYNX: Mouth normal, teeth no caries, tongue pink. Pharynx clear, no erythema. Tonsils no exudates, no abscesses noted. Mucous membrane moist. NECK: Supple, non-tender, no thyromegaly, no masses, no JVD, no bruits. BREAST: Deferred. CHEST: No tenderness, no crepitus, no paradoxical movement, no retractions. LUNGS: Clear, well-ventilated, symmetric, no rales, no wheezing, no rhonchi, no stridor, good breath sounds bilaterally. HEART: Regular rate, regular rhythm, no murmur, no gallops. VASCULAR: No peripheral edema. ABDOMEN: Soft, positive bowel sounds, nondistended, no guarding, nontender, no rebound, no masses no hepatomegaly, no splenomegaly, no Quintero's sign, no hernias. RECTAL: Deferred. GENITAL: Deferred. NEUROLOGICAL: Normal speech, gross motor function intact, gross sensory function intact. MUSCULOSKELETAL: Right lower leg neurovascularly intact there is an increased swelling compared to the left leg L some erythema up to the cath from the ankle EXTREMITIES: Nontender, full range of motion. SKIN: Color pink, dry, no turgor, no rash, no lacerations, no abrasions, no contusions. LYMPHATICS: Deferred. Results Laboratory and Microbiology Lab and Micro Result Laboratory Tests Test 03/19/24 12:50 White Blood Count 7.6 K/uL (4.8-10.8) Red Blood Count 5.51 MIL/uL (4.50-6.20) Hemoglobin 14.8 g/dL (14.0-18.0) Hematocrit 45.7 % (42-54) Mean Corpuscular Volume 82.9 fL (79-99) Mean Corpuscular Hemoglobin 26.9 pg (27.0-33.0) L Mean Corpuscular Hemoglobin Concent 32.4 g/dL (32.0-36.0) Red Cell Distribution Width 14.8 % (11.0-15.5) Platelet Count 167 K/uL (130-400) Mean Platelet Volume 9.7 fL (7.5-10.5) Immature Granulocyte % (Auto) 0.4 % (0-1) Neutrophils (%) (Auto) 85.9 % (40.0-77.0) H Lymphocytes (%) (Auto) 7.4 % (21.0-51.0) L Monocytes (%) (Auto) 5.7 % (3.0-13.0) Eosinophils (%) (Auto) 0.3 % (0.0-8.0) Basophils (%) (Auto) 0.3 % (0.0-5.0) Neutrophils # (Auto) 6.5 K/uL (1.8-7.7) Lymphocytes # (Auto) 0.6 K/uL (1.0-4.8) L Monocytes # (Auto) 0.4 K/uL (0.1-1.0) Eosinophils # (Auto) 0.02 K/uL (0.00-0.70) Basophils # (Auto) 0.02 K/uL (0.00-0.20) Absolute Immature Granulocyte (auto 0.03 K/uL (0-1) Nucleated Red Blood Cells 0.0 % (0.0-0.19) White Cell Morphology Comment See comments Erythrocyte Sedimentation Rate 2 MM/HR (0-20) Sodium Level 137 mmol/L (136-145) Potassium Level 3.7 mmol/L (3.5-5.1) Chloride Level 98 mmol/L (101-111) L Carbon Dioxide Level 27 mmol/L (21-32) Blood Urea Nitrogen 18 mg/dL (7-18) Creatinine 0.8 mg/dL (0.5-1.3) Glomerular Filtration Rate Calc 106 mL/min (>90) Random Glucose 91 mg/dL (70-105) Total Calcium 9.3 mg/dL (8.5-10.1) C-Reactive Protein, Quantitative 5.40 mg/L (0.5-3.0) H MDM CC: Right leg swelling and redness and tenderness Historian: Patient Comorbidities: Obesity hypertension Limitations by social determinants of health: None Differential diagnosis: DVT, cellulitis, SIRS, sepsis, erysipelas, other. Vital signs are stable remained stable in the ER Labs (independently ordered and interpreted by me): CBC shows no leukocytosis there is a mild left shift. No bands. Chemistries unremarkable. Glucose unremarkable. CRP and ESR unremarkable. DVT study (independently interpreted by me): No blood clots noted. X-ray (independently interpreted by me): No free air, no bony abnormalities. Patient is a voluntary markers are all relatively stable. There is no signs of SIRS or sepsis. This point in time but it is appears to be a simple cellulitis. We will treat with a dose of IM Rocephin here and we will discharge with Augmentin. We will also give pain control. I did recommend strict return precautions, if. Redness spreads or if he develops any signs of systemic illness the patient will return to the emergency department. ED Course Orders Procedure Category Date Status Time Cbc With Differential LAB 03/19/24 Complete 11:51 Basic Metabolic Panel LAB 03/19/24 Complete 11:51 Urinalysis Profile LAB 03/19/24 Logged 11:51 Erythrocyte LAB 03/19/24 Complete Sedimentation Rate 11:51 Crp Quantitative LAB 03/19/24 Complete 11:51 Blood Cult KAVON 03/19/24 In Process 11:51 Tibia/Fibula 2vws Rt RAD 03/19/24 Resulted 11:51 Us Venous Doppler US 03/19/24 Resulted Unilateral 11:51 Ceftriaxone 1g Vial PHA 03/19/24 In Process (Rocephine 1g Inj) 15:00 Current Medications Medications (Trade) Dose Ordered Sig/Cheryl Route PRN Reason Start Time Stop Time Status Last Admin Dose Admin Ceftriaxone Sodium (ROCEphine 1G INJ) 1 gm ONCE ONCE IM 03/19/24 15:00 03/19/24 15:01 Vital Signs Date Time Temp Pulse Resp B/P (MAP) Pulse Ox O2 Delivery O2 Flow Rate FiO2 03/19/24 11:47 98.2 80 20 142/72 98 Room Air DX & DISP Disposition: Discharge Departure Impression: Primary Impression: Cellulitis of right lower leg Condition: Stable Scripts Acetaminophen with Codeine (Acetaminophen-Cod #3 Tablet) 300 Mg-30 Mg Tablet 1 TAB PO Q6HPRN PRN for pain for 7 Days, #28 TAB 0 Refills Prov: SUZIE SKELTON DO 03/19/24 Amoxicillin/Potassium Clav (Amox Tr-K Clv 875-125 mg Tab) 875 Mg-125 Mg Tablet 1 TAB PO BID for 10 Days, #20 TAB 0 Refills Prov: SUZIE SKELTON DO 03/19/24 Additional Instructions: You have a right lower leg cellulitis. This is an infection of the skin. Your vital signs are stable. Your blood work (CBC, BMP, ESR, CRP) is unremarkable. There are no significant signs of infection. The ultrasound shows no signs of blood clot. The x-ray shows no bony abnormalities or free air in the skin. You received a dose of IM antibiotics and anti-inflammatory is here in the ER. I have prescribed Augmentin, which is an antibiotic. Please take twice per day for the next 10 days. I have prescribed Tylenol with codeine to use for significant pain. I also recommend that you take 800 mg of ibuprofen 3 times a day in addition to the Tylenol with codeine. This medication is [id number]. If the redness spreads quickly, if you develop a high fever, or if you have any other concerning symptoms please return to the emergency department. Otherwise, follow up with your primary doctor in 2-3 days for re-evaluation. Referrals: CELIO VICTOR (PCP) SUZIE SKELTON DO Mar 19, 2024 12:23
[2024-03-19 13:13] LABS: BASOPHILS # (AUTO) 0.02 K/uL (0.00-0.20); BASOPHILS % (AUTO) 0.3 % (0.0-5.0); EOSINOPHILS # (AUTO) 0.02 K/uL (0.00-0.70); EOSINOPHILS % (AUTO) 0.3 % (0.0-8.0); HEMATOCRIT 45.7 % (42-54); IMMATURE GRANULOCYTE ABSOLUTE 0.03 K/uL (0-1); LYMPHOCYTES # (AUTO) 0.6 K/uL (1.0-4.8); LYMPHOCYTES % (AUTO) 7.4 % (21.0-51.0); MEAN CORPUSCULAR HEMOGLOBIN 26.9 pg (27.0-33.0); MEAN CORPUSCULAR HGB CONC 32.4 g/dL (32.0-36.0); MEAN CORPUSCULAR VOLUME 82.9 fL (79-99); MONOCYTES # (AUTO) 0.4 K/uL (0.1-1.0); MONOCYTES % (AUTO) 5.7 % (3.0-13.0); NEUTROPHILS # (AUTO) 6.5 K/uL (1.8-7.7); NEUTROPHILS % (AUTO) 85.9 % (40.0-77.0); PLATELET COUNT (AUTO) 167 K/uL (130-400); RED BLOOD CELL COUNT(AUTO) 5.51 MIL/uL (4.50-6.20); RED CELL DISTRIBUTION WIDTH 14.8 % (11.0-15.5); WHITE BLOOD COUNT (AUTO) 7.6 K/uL (4.8-10.8)
[2024-03-19 13:20] LABS: CREATININE 0.8 mg/dL (0.5-1.3); POTASSIUM 3.7 mmol/L (3.5-5.1)
[2024-03-19 14:23] LABS: ERYTHROCYTE SEDIMENTATION RATE 2 MM/HR (0-20)
--- NOTE | 2024-03-19 14:25 | HMCIMG ---
Exam Type: TIBIA/FIBULA 2VWS RT Clinical Information: swelling Comparison: None Findings: The bone examination is unremarkable. No fractures or dislocations are seen. No radiopaque foreign bodies are noted. Soft tissues are preserved. IMPRESSION: Normal examination.
[2024-03-19] MEDS ORDERED: AMOX1TAB16 PO (14:49)
[2024-03-19] MEDS ORDERED: ACET-2079 PO (14:49)
[2024-03-19] MEDS: ketOROlac 15MG/ML VIAL (15MG/ML) IM ONE (14:56)
[2024-03-19] MEDS: cefTRIAXone 1G VIAL IM ONE (14:56)
[2024-03-19 14:57] VITALS: BP 151/62; PULSE 87; RESP 20; TEMP 98.3; O2SAT 100
== END 2024-03-19 15:16 | disposition home or self-care (01) ==
LOC: EDH 11:29
DX: L03.115 Cellulitis of right lower limb (principal); Z79.899 Other long term (current) drug therapy; Z98.84 Bariatric surgery status
CPT/HCPCS: 99285; 93971; 80048; 85025; 85651; 87040 ×2; 86140; 36415; 73590; 96372 ×2; J1885; J0696